=== PATIENT | female | born 1995 | race Native Hawaiian/Other Pacific Islander ===

== ENCOUNTER 2018-08-04 11:21 | Outpatient (CLI) | payer SELFPAY | END 2018-08-04 11:22 | disposition home or self-care (01) | LOC: C.LAB 11:21 | DX: Z34.81 Encounter for supervision of other normal pregnancy, first trimester (principal) ==

== ENCOUNTER 2018-08-09 13:38 | Outpatient (CLI) | payer SELFPAY | END 2018-08-09 13:39 | disposition home or self-care (01) | LOC: C.USIC 13:38 | DX: Z34.01 Encounter for supervision of normal first pregnancy, first trimester (principal) ==

== ENCOUNTER → 2018-10-11 | Outpatient (CLI) | payer SELFPAY | END | disposition home or self-care (01) | LOC: C.LAB 10:26 | DX: Z34.92 Encounter for supervision of normal pregnancy, unspecified, second trimester (principal) ==

== ENCOUNTER 2018-11-23 09:54 | Outpatient (CLI) | payer SELFPAY | END 2018-11-23 09:55 | disposition home or self-care (01) | LOC: C.LAB 09:54 | DX: Z3A.26 26 weeks gestation of pregnancy (principal) ==